=== PATIENT | female | born 1995 | race Caucasian/White ===

== ENCOUNTER 2020-10-23 01:10 | Emergency (ER) | payer OTHER ==
[~2020-10-23] VITALS: Ht 172.7 cm; Wt 85.7 kg
[2020-10-23] MEDS ORDERED: DIFLUCAN150 MG PO (01:32)
[2020-10-23] MEDS ORDERED: TYLENOL325 M1 PO (01:32)
[2020-10-23] MEDS ORDERED: AUGMENTIN 875-1 EACH PO (01:32)
[2020-10-23 01:41] VITALS: BP 129/80
== END 2020-10-23 01:41 | disposition home or self-care (01) ==
LOC: M.ERS 01:10
DX: J02.9 Acute pharyngitis, unspecified (principal)